=== PATIENT | male | born 1995 | race Caucasian/White ===

== ENCOUNTER 2019-09-06 09:57 | Outpatient (CLI) | payer BC ==
--- NOTE | 2019-09-06 14:13 | MRI ---
MRI LEFT SHOULDER: DATE: 09/06/2019. PROVIDED CLINICAL HISTORY: Left shoulder pain without injury. FINDINGS: The components of the rotator cuff appear intact. The long-head biceps tendon appears intact and nor bridger located. The glenoid labrum and glenohumeral articular cartilage are suboptimally evaluated in the absence of joint distention but appear grossly normal. The amount of fluid within the glenohumeral joint and subacromial subdeltoid bursa appear physiologic . No focal concerning regional marrow signal abnormality apparent. There is diffuse homogeneous increa sed signal intensity on fluid sensitive sequences involving the teres minor muscle. The teres minor muscle also appears somewhat diminutive in terms of size and there is mild fatty infiltration. IMPRESSION: Subacute denervation changes involving teres minor muscle. Consider quadrilateral space syndrome. POS: [facility]
== END 2019-09-06 09:58 | disposition home or self-care (01) ==
LOC: SCSMRI 09:57
PROVIDERS: ATTEND Orthopaedic Surgery
DX: M25.512 Pain in left shoulder (principal)